=== PATIENT | female | born 1990 | race Caucasian/White ===

== ENCOUNTER 2021-09-16 19:57 | Inpatient (IN) ==
[2021-09-16] MEDS ORDERED: PENICILLIN G POTASSIUM 6 MU in DEXTROSE 5% 250 ML IV STA (20:38)
[2021-09-16] MEDS ORDERED: OXYTOCIN 30 UNITS/500 ML BAG IV PRN ×2 (20:38→20:54)
--- NOTE | 2021-09-16 20:51 | History & Physical Report ---
Date of Service September 16, 2021 Assessment & Plan (1) Elevated BP without diagnosis of hypertension: Plan: Patient does not fully meet the criteria for gestational hypertension with 2 blood pressures by a period of time however she is 40 weeks + at this stage of see no advantage and waiting with several elevated blood pressures and increased swelling she does have a headache but she has had this for 2 weeks and is not worse today Her cervix is examined she is 1 and thick cervical Finch is placed under sterile conditions 30 cc of saline into the Finch balloon patient tolerated well she requires penicillin for GBS and then will start pet Pitocin for induction estimated weight 8 pounds again reviewed with the patient that induction is recommended primarily because there is no advantage in waiting at this stage she has passed her due date and she is having some elevated blood pressures History of Present Illness Primary Care Provider: NO PCP Visit [facility] Calculator Estimated Delivery Date Method Current WG Current Estimate 09/15/21 Ultrasound #1 40w 0d Other Estimates 10/12/21 LMP (Uncertain) 36w 1d LMP: 01/05/21 : 3 Full term: 2 Premature: 0 Total Number of Induced Abortions: 0 Total Number of Spontaneous Abortions: 0 Ectopics: 0 Multiple births: 0 Number of Living Children: 2 and Delivery Plans Late Presentation at 21 wks GBS Positive *treat in LD Obesity (BMI 40 and higher @ beginning of ) *Growth US @ 32wks- 60th percentile 07/21/21 *Weekly NSTs @ 34wks new FOB s/p moderna flu shot given 05/07/21 SB Rubella Equivocal *ppx MMR Allergies Allergy/AdvReac Type Severity Reaction Status Date / Time latex Allergy Mild RASH Verified 09/15/21 10:28 Home Medications Medication Instructions Recorded Confirmed Type prenat.vits,jai,vsi-nked-zqvan 1 tab PO DAILY 07/08/21 09/16/21 History Patient History Medical History FELIPE I (cervical intraepithelial neoplasia I) History of chicken pox Surgical History History of colposcopy with cervical biopsy S/P appendectomy S/P tonsillectomy S/P tympanoplasty Family History Grandmother (Maternal) Breast cancer Diabetes Myocardial infarction Mother Diabetes Denies family history of Ovarian cancer Colorectal cancer Social History Smoking Status: Never smoker Hx Alcohol Use: No Hx Substance Use: No Preferred Language: Faroese marital status: marital status details: adalberto Bowman (24) [phone] Current Living Situation: Family and Significant Other Current Living Situation Comment: lives with adalberto, 2 children, dogs current occupational status: employed current occupation: [email or web address] Feels Safe at Home: Yes Safety Concerns: Feels Safe At This Time Results & Data ([facility]) Vital Signs (Past 12 Hours) Vital Signs Pulse Resp BP 09/16/21 20:30 77 149/67 H 09/16/21 20:28 82 149/91 H 09/16/21 20:17 18 09/16/21 20:14 81 144/85 H 09/16/21 20:13 80 142/90 H Code Status & VTE Plan VTE Prophylaxis Plan VTE Prophylaxis will be ordered: No Coding Level of Care Code None Diagnoses Elevated BP without diagnosis of hypertension R03.0
[2021-09-16 21:02] LABS: Hematocrit (blood only) 34.9 % (37-47); Hemoglobin 11.6 g/dL (12.0-16.0); Mean Corpuscular Hemoglobin 29.6 pg (25-34); Mean Corpuscular Hgb Conc 33.2 g/dL (32-36); Mean Platelet Volume 9.5 fL (7.4-10.4); Platelet Count 182 K/uL (130-400); RDW Coefficient of Variation 13.9 % (11.5-14.5); RDW Standard Deviation 45.5 fL (36.4-46.3); Red Blood Count 3.92 M/uL (4.2-5.4); White Blood Count 7.78 K/uL (4.8-10.8)
[2021-09-16] MEDS: LACTATED RINGER'S 1,000 ML IV PRN (21:09)
[2021-09-16 21:32] LABS: Albumin Level 3.4 gm/dl (3.4-5.0); Bilirubin Direct 0.1 mg/dl (0-0.2); Bilirubin,Total 0.3 mg/dl (0.2-1.0); Calcium 8.8 mg/dl (8.5-10.1); Creatinine Clr Calc Pharmacy 200.7 ml/min; Est GFR (African American) 147.8 ml/min; Est GFR (Non-African American) 127.5 ml/min; Globulin 3.3 gm/dl (2.5-4.0); Potassium 3.6 mmol/L (3.5-5.1); Total Protein 6.7 gm/dl (6.0-8.3)
[2021-09-16 21:43] LABS: Creatinine Urine Random 59.3 mg/dl; Protein Creatinine Ratio Urine 0.1 (0-0.2); Total Protein Urine Random 7.9 mg/dl (0-11.9)
[2021-09-17] MEDS: PENICILLIN G POTASSIUM 3 MU in DEXTROSE 5% 100 ML IV PRN ×3 (01:30→09:31)
--- NOTE | 2021-09-17 07:59 | Labor Progress Brief Note ---
Date of Service September 17, 2021 Stef has fallen out of her cervix artificial rupture membranes for clear fluid she is 4 cm thick -2 station Pitocin induction continues blood pressure stable Assessment & Plan Admission and Anticipated Discharge Date Admission Date: September 16, 2021 Results & Data ([facility]) Vital Signs (Past 12 Hours) Vital Signs Temp Pulse Resp BP 09/17/21 07:30 20 09/17/21 07:00 97.7 F 22 09/17/21 06:59 67 141/84 H 09/17/21 05:41 74 138/76 09/17/21 04:28 73 121/67 09/17/21 03:28 98.6 F 67 18 114/59 L 09/17/21 00:43 98.2 F 68 18 119/58 L 09/16/21 22:21 71 143/79 H 09/16/21 22:06 65 147/78 H 09/16/21 21:51 65 144/82 H 09/16/21 21:36 67 135/83 09/16/21 21:21 76 143/76 H 09/16/21 21:01 75 147/89 H 09/16/21 20:59 65 137/85 09/16/21 20:30 77 149/67 H 09/16/21 20:28 98.2 F 82 18 149/91 H 09/16/21 20:17 18 09/16/21 20:14 81 144/85 H 09/16/21 20:13 80 142/90 H Coding Level of Care Code None
[2021-09-17] MEDS: LACTATED RINGER'S 1,000 ML IV PRN (11:40)
[2021-09-17] MEDS ORDERED: LIDOCAINE 1% LOCAL 20 ML VIAL ONE (12:47)
[2021-09-17] MEDS ORDERED: OXYTOCIN 30 UNITS/500 ML BAG IV PRN (13:17)
[2021-09-17] MEDS ORDERED: ACETAMINOPHEN 325 MG TAB PO PRN (13:17)
[2021-09-17] MEDS ORDERED: bisacodyL 10 MG SUPP PR PRN (13:17)
[2021-09-17] MEDS ORDERED: DIPHTHERIA/TETANUS/PERTUSSIS 0.5 ML SYR/VIAL IM ONE (13:17)
[2021-09-17] MEDS ORDERED: oxyCODONE/ACETAMINOPHEN 5mg/325mg TAB PO PRN (13:17)
[2021-09-17] MEDS ORDERED: HYDROCORTISONE ACETATE 25 MG SUPP PR PRN (13:17)
[2021-09-17] MEDS ORDERED: BENZOCAINE 20% AER SPR 82.5 GM CAN EXT PRN (13:17)
--- NOTE | 2021-09-17 13:46 | Delivery Summary ---
Vaginal Delivery Summary Date of Service September 17, 2021 Vaginal Delivery Summary and 2nd Degree LAC Patient is a 30-year-old 3 para 2-0-0-2 female EDC of 09/15/2021 who was evaluated in labor and delivery last evening for elevated blood pressures. They did not fit the criteria for gestational hypertension or preeclampsia but because she was past her due date it was felt prudent to proceed with induction of labor. A cervical balloon was placed last evening and after it fell out her cervix was dilated to 4 cm. Membranes were ruptured for clear fluid and Pitocin augmentation of her labor was begun. She progressed to full dilation and pushed effectively over intact perineum for delivery of a viable male infant. After the head was delivered there was a loose nuchal cord reduced. Rest the delivered with hyperflexion of the hips and maternal effort. After delivery the infant was placed on the mother's abdomen for further attention and drying. Initially there was poor respiratory effort by the and the cord was clamped and cut after approximately 30 seconds. After stimulation and drying, the was spontaneously crying and moving all 4 limbs. The placenta was expressed intact with a three-vessel cord after obtaining cord blood. 1% Xyloc jhoana was used to anesthetize the perineal laceration prior to repairing it with 3-0 chromic in the usual fashion. Estimated blood loss is 350 cc. bleeding was controlled with dilute Pitocin and fundal massage. Mother and baby were doing well post delivery. [facility] Vaginal Delivery Charge Delivery Type Details: and 2nd Degree LAC
[2021-09-17] MEDS: IBUPROFEN 600 MG TAB PO PRN (16:53)
[2021-09-17] MEDS: DOCUSATE SODIUM 100 MG CAP PO SCH (21:05)
[2021-09-18 06:41] LABS: Hematocrit (blood only) 30.8 % (37-47); Hemoglobin 10.3 g/dL (12.0-16.0); Mean Corpuscular Hemoglobin 29.1 pg (25-34); Mean Corpuscular Hgb Conc 33.4 g/dL (32-36); Mean Platelet Volume 9.4 fL (7.4-10.4); Platelet Count 169 K/uL (130-400); RDW Coefficient of Variation 14.2 % (11.5-14.5); RDW Standard Deviation 44.7 fL (36.4-46.3); Red Blood Count 3.54 M/uL (4.2-5.4); White Blood Count 8.34 K/uL (4.8-10.8)
--- NOTE | 2021-09-18 07:14 | Obstetrical Progress Note ---
Date of Service September 18, 2021 Assessment & Plan (1) Encounter for care and examination after delivery: satisfactory recovery BP has been normotensive except for 1 elevation this morning patient wishes to go home later today if BP not elevated follow BP check in the office in 1 week. Subjective Ambulation: ambulating normally Voiding: no voiding problems Passing Gas:: Yes Diet Tolerance:: regular diet Lochia:: Small Feeding Type:: breast feeding Review of Systems All systems reviewed & are unremarkable except as noted in HPI & below Physical Exam Constitutional WD/WN, vitals as above Psychiatric A+Ox3, euthymic affect Genitourinary OB Exam Abdomen: + fundal height Fundus: + firm and + relation to umbilicus (at U); not tender negative calf tenderness Results & Data ([facility]) Vital Signs (Past 12 Hours) Vital Signs Temp Pulse Resp BP Pulse Ox 09/18/21 03:55 97.7 F 73 16 149/98 H 98 09/17/21 23:10 97.7 F 70 16 129/83 100 09/17/21 19:40 98.1 F 69 16 143/85 H 99
[2021-09-18] MEDS ORDERED: PRENATAL VITAMIN 1 TAB PO SCH (08:00)
[2021-09-18] MEDS: IBUPROFEN 600 MG TAB PO PRN (08:44)
[2021-09-18] MEDS: DOCUSATE SODIUM 100 MG CAP PO SCH (08:44)
[2021-09-18] MEDS ORDERED: MEASLES, MUMPS & RUBELLA VIRUS VIAL SQ ONE (14:30)
[2021-09-18] MEDS ORDERED: bisacodyL 5 MG TABEC PO SCH (20:00)
== END 2021-09-18 15:45 | disposition home or self-care (01) | DRG 807 ==
LOC: OPB 19:57 → 4S1 20:00 → 4E2 09-17 15:43